=== PATIENT | female | born 1955 | race African-American/Black ===

== ENCOUNTER 2021-03-26 08:33 | Emergency (ER) | payer OTHER ==
[~2021-03-26] VITALS: Ht 160 cm; Wt 62.9 kg
[2021-03-26 08:52] VITALS: BP 128/74
[2021-03-26] MEDS ORDERED: ERYT30GE2 TP (09:14)
--- NOTE | 2021-03-26 09:14 | PHYS DOC ---
Past History Past Surgical History: Other Additional Past Surgical Histo: corneal transplant Alcohol Use: Occasionally Adult General Chief Complaint Chief Complaint: EYE PROBLEMS HPI HPI Patient is a 65-year-old female who presents with right eye problem. Onset was 48 hours ago without any noteworthy event, trauma, ingestion, exposure or other known mechanism of injury. Nothing known makes better or worse. Patient reports she initially developed right upper eyelid swelling that has worsened. States she is that she did a couple times but otherwise it is just been getting larger on its own. She is not provided any type of supportive care taken anything in attempt to alleviate her symptoms. She has never had this before. She does wear contacts but has not been wearing contacts during current episode. Review of Systems Review of Systems Fourteen body systems of review of systems have been reviewed. See HPI for pertinent positives and negative responses, other xie all other systems are negative, non-pertinent or non-contributory Allergies Allergies Allergies Coded Allergies Type Severity Reaction Last Updated Verified Penicillins Allergy Unknown 03/26/21 Yes Physical Exam Physical Exam Constitutional: Well developed, well nourished, no acute distress, non-toxic appearance. HENT: Normocephalic, atraumatic, bilateral external ears normal, oropharynx mo ist, no oral exudates, nose normal. Eyes: PERRLA, EOMI, conjunctiva normal. Patient does have inflammation of right superior lid margin with ocular irritation and matted lashes with creamy colored discharge. There is tearing without any obvious signs of trauma, signs of crepitus or streaking Neck: Normal range of motion, no tenderness, supple, no stridor. Cardiovascular: Heart rate regular per monitor Lungs & Thorax: No respiratory distress or accessory muscle use, bilateral chest rise Abdomen: Abdomen soft, non-tender, bowel sounds present in all quadrants, no guarding or rebound, nonacute abdomen. Skin: Warm, dry, no erythema, no rash. Back: No tenderness, no CVA tenderness. Extremities: No tenderness, no cyanosis, no clubbing, ROM intact, no edema. Neurologic: Alert and oriented X 3, grossly normal motor & sensory function, no focal deficits noted. Psychologic: Affect normal, judgement normal, mood normal. Current Patient Data Vital Signs Vital Signs Date Time Temp Pulse Resp B/P (MAP) Pulse Ox O2 Delivery O2 Flow Rate FiO2 03/26/21 08:52 98.4 73 16 128/74 (92) 100 Room Air EKG EKG [] Radiology/Procedures Radiology/Procedures [] Heart Score C/O Chest Pain: No Risk Factors: Risk Factors: DM, Current or recent (<one month) smoker, HTN, HLP, family history of CAD, obesity. Risk Scores: Risk Factors: DM, Current or recent (<one month) smoker, HTN, HLP, family history of CAD, obesity. Course & Med Decision Making Course & Med Decision Making ABCs unremarkable HPI and physical examination concerning for blepharitis of right superior eyelid. No intraorbital abnormalities or involvement Disclose little indication for further diagnostic work-up or intervention in ER setting. Joint decision to discharge home with continued supportive care practices such as warm compresses and topical erythromycin for use of eye Patient has outpatient eye doctor for whom she can follow-up within upcoming 5 days for repeat evaluation which I feel is appropriate. Strict return precautions discussed with good understanding verbalized by patient. All que stions and concerns addressed prior to departure Dragon Disclaimer Dragon Disclaimer This electronic medical record was generated, in whole or in part, using a voice recognition dictation system. Departure Departure: Impression: Primary Impression: Blepharitis of right upper eyelid Disposition: HOME / SELF CARE / HOMELESS Condition: STABLE Referrals: ERENDIRA STEVENS MD (PCP) Patient Instructions: Blepharitis Additional Instructions: Been ongoing for over 48 hours and worsening. Continued lid hygiene is most important for this condition. As discussed prior to ER departure, your vitals and physical exam were nonconcerning for any emergent or surgical issues. You were most likely suffering from a condition called blepharitis which is typically self-limiting. With that said, continue to avoid eye make-up and applying contacts. Use warm compresses four times a day for at least 15 minutes. Joint decision was made to start topical erythromycin antibiotic ointment that should be applied directly on lid margin. I would contact your primary care physician and eye doctor immediately after ER departure to schedule close follow-up within upcoming 1 to 5 days for repeat evaluation to ensure continued symptomatic resolution. If any concerning signs or symptoms present prior to outpatient follow-up please do not hesitate to come back for repeat evaluation. It was a pleasure to take care of you and I wish you the best going forward Scripts Erythromycin Base/Ethanol (ERYTHROMYCIN 2% GEL) 30 Gm Gel..gram. 1 DELPHINE TP BID for right eye blepharitis for 15 Days, #30 GM 0 Refills Prov: CONNIE RIZVI DO 03/26/21 CONNIE RIZVI DO Mar 26, 2021 09:14
[2021-03-26] MEDS ORDERED: ERYTHROMYCIN 0.5% OPHTH OINTMENT 1GM TUBE. OD ONE (09:15)
== END 2021-03-26 09:31 | disposition home or self-care (01) ==
LOC: ER 08:33
DX: H01.001 Unspecified blepharitis right upper eyelid (principal); Z88.0 Allergy status to penicillin
CPT/HCPCS: 99283-25